=== PATIENT | female | born 1965 | race American Indian/Alaskan Native ===

== ENCOUNTER 2019-05-11 17:53 | Emergency (ER) | payer SELFPAY ==
--- NOTE | 2019-05-11 18:20 | Event Note ---
ED Screening Note Date of service: 05/11/19 Time: 18:15 ED Screening Note: This is a 53 y.o. F. that presents to the ER with SOB, wheezing, and right eye pain. PMH COPD, HTN, schizophrenia, bipolar, AL, and sickle cell trait. Reports right eye drainage, redness, photophobia, and pain x 2 days. This initial assessment/diagnostic orders/clinical plan/treatment(s) is/are subject to change based on patients health status, clinical progression and re- assessment by fellow clinical providers in the ED. Further treatment and workup at subsequent clinical providers discretion. Patient/guardian urged not to elope from the ED as their condition may be serious if not clinically assessed and man aged. Initial orders include: CXR and labs
[2019-05-11 18:51] LABS: Basophils # (Auto) 0.1 K/mm3 (0.0-0.1); Eosinophils # (Auto) 0.2 K/mm3 (0.0-0.4); Eosinophils % (Auto) 3.6 % (0.0-4.3); Hematocrit 39.7 % (30.3-42.9); Hemoglobin 13.2 gm/dl (10.1-14.3); Lymphocytes # (Auto) 2.1 K/mm3 (1.2-5.4); Mean Corpuscular HGB Conc 33 % (30-34); Mean Corpuscular Volume 94 fl (79-97); Monocytes # (Auto) 0.7 K/mm3 (0.0-0.8); Monocytes % (Auto) 10.2 % (0.0-7.3); Platelet Count 724 K/mm3 (140-440); Red Blood Count 4.23 M/mm3 (3.65-5.03); Red Cell Distribution Width 14.8 % (13.2-15.2)
--- NOTE | 2019-05-11 18:54 | XRay Report ---
CHEST 2 VIEWS INDICATION / CLINICAL INFORMATION: Shortness of breath. COMPARISON: None available. FINDINGS: SUPPORT DEVICES: None. HEART / MEDIASTINUM: No significant abnormality. LUNGS / PLEURA: No significant pulmonary or pleural abnormality. No pneumothorax. ADDITIONAL FINDINGS: No significant additional findings. IMPRESSION: 1. No acute findings. Signer Name: Willy Patel MD Signed: 05/11/2019 6:49 PM Workstation Name: [id number]
[2019-05-11 19:12] LABS: BUN/Creatinine Ratio 13; Blood Urea Nitrogen 14 mg/dL (7-17); Calcium 9.4 mg/dL (8.4-10.2); Hemolysis Index 23
[2019-05-11] MEDS ORDERED: ATROVENT IH ONE (20:49)
[2019-05-11] MEDS ORDERED: DELTASONE PO ONE (20:49)
[2019-05-11] MEDS ORDERED: PROVENTIL IH ONE (20:49)
--- NOTE | 2019-05-11 20:55 | Emergency Department Report ---
HPI - General Chief Complaint: Dyspnea/Respdistress Time Seen by Provider: 05/11/19 18:15 - HPI HPI: Room 19 The patient is a 53-year-old female comes in with chief complaint of shortness of breath and right eye irritation. The patient states for one week she's had shortness of breath is consistent with her COPD. Patient was an occasional cough that is nonproductive. Patient denies history of fever. The patient states for the past 3 days she's had tearing from the right eye in addition to pruritus and irritation. Location: [See above] Duration: [See above] Quality: [See above] Severity: [See above] Modifying factors: [see above] Context: [see above] Mode of transportation: [not driving] ED Past Medical Hx - Past Medical History Hx Hypertension: Yes Hx Sickle Cell Disease: Yes (trait) Hx Psychiatric Treatment: Yes (schizophrenia,bipolar) Hx COPD: Yes - Surgical History Additional Surgical History: left lung-2004, hernia,c-sections - Family History Family history: no significant - Social History Smoking Status: Current Every Day Smoker (1/3 pack per day) Substance Use Type: None (denies illicit drug use), Alcohol (occasional) - Medications Home Medications: Home Medications Medication Instructions Recorded Confirmed Last Taken Type ALBUTEROL Inhaler (OR & NICU) 2 puff IH QID PRN #1 inha 05/11/19 Unknown Rx [ProAir HFA Inhaler] Budesonide/Formoterol Fumarate 10.2 gm IH 05/11/19 Unknown History [Symbicort 80-4.5 Mcg Inhaler] Polymyxin B Sulf/Trimethoprim 1 drop OD QID #10 ml 05/11/19 Unknown Rx [Polytrim Eye Drops] Prednisone [predniSONE 10 mg 10 mg PO .TAPER #1 tab.ds.pk 05/11/19 Unknown Rx (6-Day Pack, 21 Tabs)] QUEtiapine [SEROquel] 200 mg PO BID #30 tablet 05/11/19 Unknown Rx amLODIPine [Norvasc] 10 mg PO DAILY #90 tablet 05/11/19 Unknown Rx traZODone [Desyrel] 50 mg PO QHS #30 tablet 05/11/19 Unknown Rx ED Review of Systems ROS: Stated complaint: COPD/R EYE PAIN Other details as noted in HPI Constitutional: denies: fever Eyes: eye pain, eye discharge ENT: denies: throat pain Respiratory: cough, shortness of breath, wheezing Cardiovascular: denies: chest pain Endocrine: no symptoms reported Gastrointestinal: denies: abdominal pain Genitourinary: denies: dysuria Musculoskeletal: denies: back pain Neurological: denies: headache Physical Exam - Physical Exam Vital Signs: Vital Signs 05/11/19 05/11/19 05/11/19 18: 20:45 20:46 Temperature 98.2 F Pulse Rate 80 77 Respiratory 18 Rate Blood Pressure 196/110 Blood Pressure 190/116 [Right] O2 Sat by Pulse 98 98 Oximetry Physical Exam: GENERAL: The patient is well-developed well-nourished female lying on stretcher not appearing to be in acute distress. [] HEENT: Normocephalic. Atraumatic. Extraocular motions are intact. OD conjunctiva injected consistent with conjunctivitis. No hypopyon NECK: Supple. Trachea midline CHEST/LUNGS: Diminished breath sounds, tight wheezing. There is no respiratory distress noted. HEART/CARDIOVASCULAR: Regular. There is no tachycardia. There is no gallop rub or murmur. ABDOMEN: Abdomen is soft, nontender. Patient has normal bowel sounds. There is no abdominal distention. SKIN: There is no rash. There is no edema. There is no diaphoresis. NEURO: The patient is awake, alert, and oriented. The patient is cooperative. The patient has normal speech MUSCULOSKELETAL: There is no evidence of acute injury. ED Course Vital Signs 05/11/19 05/11/19 05/11/19 18: 20:45 20:46 Temperature 98.2 F Pulse Rate 80 77 Respiratory 18 Rate Blood Pressure 196/110 Blood Pressure 190/116 [Right] O2 Sat by Pulse 98 98 Oximetry - Reevaluation(s) Reevaluation #1: 05/11/19 23:23 Patient improved. Lungs clear auscultation ED Medical Decision Making - Lab Data Result diagrams: 05/11/19 18:33 05/11/19 18:33 Laboratory Tests 05/11/19 05/11/19 18:33 18:33 WBC 6.4 RBC 4.23 Hgb 13.2 Hct 39.7 MCV 94 MCH 31 MCHC 33 RDW 14.8 Plt Count 724 H Lymph % (Auto) 33.0 Baker % (Auto) 10.2 H Eos % (Auto) 3.6 Baso % (Auto) 1.0 Lymph # 2.1 Baker # 0.7 Eos # 0.2 Baso # 0.1 Seg Neutrophils % 52.2 Seg Neutrophils # 3.3 Sodium 141 Potassium 4.6 Chloride 104.6 Carbon Dioxide 27 Anion Gap 14 BUN 14 Creatinine 1.1 Estimated GFR > 60 BUN/Creatinine Ratio 13 Glucose 100 Calcium 9.4 - Radiology Data Radiology results: report reviewed (chest x-ray), image reviewed (chest x-ray) interpreted by me: Chest x-ray-no focal infiltrates, no pneumothorax [facility] [address] [place] [address] XRay Report Signed Patient: AMANDA HENRY MR#: [id number] : 1965 Acct:[id number] Age/Sex: 53 / F ADM Date: 05/11/19 Loc: ED Attending Dr: Ordering Physician: ETHAN RENEE Date of Service: 05/11/19 Procedure(s): XR chest routine 2V Accession Number(s): [id number] cc: ETHAN RENEE Fluoro Time In Minutes: CHEST 2 VIEWS INDICATION / CLINICAL INFORMATION: Shortness of breath. COMPARISON: None available. FINDINGS: SUPPORT DEVICES: None. HEART / MEDIASTINUM: No significant abnormality. LUNGS / PLEURA: No significant pulmonary or pleural abnormality. No pneumothorax. ADDITIONAL FINDINGS: No significant additional findings. IMPRESSION: 1. No acute findings. Signer Name: Willy Patel MD Signed: 05/11/2019 6:49 PM Workstation Name: [id number] Transcribed By: ALFONSOB Dictated By: Willy Patel MD El [employer] Authenticated By: Willy Patel MD Signed Date/Time: 05/11/191848 DD/ 48 TD/TT: - Differential Diagnosis COPD exacerbation, conjunctivitis, pneumonia, bronchitis Critical care attestation.: If time is entered above; I have spent that time in minutes in the direct care of this critically ill patient, excluding procedure time. ED Disposition Clinical Impression: COPD exacerbation, Shortness of breath, Conjunctivitis, right eye Disposition: DC-01 TO HOME OR SELFCARE Is pt being admited?: No Does the pt Need Aspirin: No Condition: Stable Instructions: Chronic Obstructive Pulmonary Disease (ED) Additional Instructions: Return to the emergency department immediately should you develop worsening sym ptoms, fever, inability to tolerate food or liquid or any other concerns. Prescriptions: traZODone [Desyrel] 50 mg PO QHS #30 tablet amLODIPine [Norvasc] 10 mg PO DAILY #90 tablet Polymyxin B Sulf/Trimethoprim [Polytrim Eye Drops] 1 drop OD QID #10 ml Prednisone [predniSONE 10 mg (6-Day Pack, 21 Tabs)] 10 mg PO .TAPER #1 tab.ds.pk ALBUTEROL Inhaler (OR & NICU) [ProAir HFA Inhaler] 2 puff IH QID PRN #1 inha PRN Reason: Shortness Of Breath QUEtiapine [SEROquel] 200 mg PO BID #30 tablet Referrals: CHARLI MARES MD [Primary Care Provider] - 3-5 Days Time of Disposition: 23:26
[2019-05-11] MEDS ORDERED: CATAPRES PO ONE (20:57)
[2019-05-11 23:20] VITALS: BP 134/67
== END 2019-05-11 23:43 | disposition home or self-care (01) ==
LOC: ED 17:53
DX: J44.1 Chronic obstructive pulmonary disease with (acute) exacerbation (principal); R06.02 Shortness of breath; H10.9 Unspecified conjunctivitis; I10 Essential (primary) hypertension; F20.9 Schizophrenia, unspecified; F31.9 Bipolar disorder, unspecified; F17.210 Nicotine dependence, cigarettes, uncomplicated; D57.3 Sickle-cell trait; Z79.899 Other long term (current) drug therapy
CPT/HCPCS: 36415; 71046; 80048; 85025; 94644; 99284; J7512; 94640

== ENCOUNTER 2020-09-10 11:46 | Outpatient (CLI) | payer OTHER ==
--- NOTE | 2020-09-10 12:47 | XRay Report ---
RIGHT ELBOW 2 VIEWS INDICATION / CLINICAL INFORMATION: RIGHT ELBOW PAIN. COMPARISON: None available. FINDINGS: No significant skeletal abnormality Signer Name: Kushal Pugh MD FACR Signed: 09/10/2020 12:43 PM Workstation Name: [id number]
--- NOTE | 2020-09-10 12:48 | XRay Report ---
LUMBAR SPINE 3 VIEWS INDICATION / CLINICAL INFORMATION: BACK PAIN. COMPARISON: None available. FINDINGS: Mild anterolisthesis of L4 on L5. Moderate degenerative change at L5-S1. No other significant skeleta l abnormality Signer Name: Kushal Pugh MD FACR Signed: 09/10/2020 12:44 PM Workstation Name: [id number]
--- NOTE | 2020-09-10 14:10 | XRay Report ---
RIGHT SHOULDER 3 VIEW(S) INDICATION / CLINICAL INFORMATION: RIGHT SHOULDER PAIN COMPARISON: None available. FINDINGS: BONES / JOINT(S): No acute fracture or subluxation. No significant arthritis. SOFT TISSUES: No significant abnormality. ADDITIONAL FINDINGS: None. Signer Name: Olegario Webber MD Signed: 09/10/2020 2:05 PM Workstation Name: [id number]
== END 2020-09-10 11:47 | disposition home or self-care (01) ==
LOC: XRAY 11:46
PROVIDERS: ATTEND Internal Medicine
DX: M43.16 Spondylolisthesis, lumbar region (principal); M47.817 Spondylosis without myelopathy or radiculopathy, lumbosacral region; M25.511 Pain in right shoulder; M25.521 Pain in right elbow; I10 Essential (primary) hypertension; J44.9 Chronic obstructive pulmonary disease, unspecified
CPT/HCPCS: 72100

== ENCOUNTER 2021-12-13 18:31 | Emergency (ER) | payer MEDICAID, OTHER ==
[2021-12-13 19:03] VITALS: BP 220/146
[2021-12-13] MEDS ORDERED: KETOROLAC 10 MG TAB PO ONE (19:40)
[2021-12-13] MEDS ORDERED: DEXAMETHASONE 4 MG TAB PO ONE (19:40)
[2021-12-13] MEDS ORDERED: oxyCODONE /ACETAMINOPHEN 5-325MG TAB PO ONE (19:40)
[2021-12-13] MEDS ORDERED: cloNIDine 0.1 MG TAB PO ONE (19:41)
[2021-12-13] MEDS ORDERED: AMOXICILLIN 500 MG CAP PO ONE (19:41)
--- NOTE | 2021-12-13 19:48 | Emergency Department Report ---
ED ENT HPI - General Chief complaint: Dental/Oral Stated complaint: EYE SWOLLEN Time Seen by Provider: 12/13/21 18:55 Source: patient Mode of arrival: Ambulatory Limitations: No Limitations - History of Present Illness Initial comments: 56-year-old black female with a past medical history of hypertension, diabetes, COPD, schizophrenia, and bipolar disorder presents to the emergency department with few day history of worsening right upper tooth pain and facial swelling. She denies fever but states that she this is a case pus drainage in her mouth th at started today. She is also requesting refill of medications stating that she has not taken her blood pressure medications in a couple of days. She denies chest pain, shortness of breath, nausea, vomiting, and dizziness. MD complaint: tooth pain -: Gradual, days(s) (To) Location: R ear, tooth # (2) Severity: severe Severity scale (0 -10): 10 Quality: aching, constant Consistency: constant Worsens with: eating, other Context- Dental: history of dental caries Associated Symptoms: gum swelling, toothache. denies: fever, cough, pain with swallowing, sore throat, tinnitus, hearing loss, discharge from ear, rhinorrhea - Related Data Previous Rx's Medication Instructions Recorded Last Taken Type Albuterol Mdi (or & Nicu Only) 2 puff IH QID PRN #1 inha 05/11/19 Unknown Rx [ProAir HFA Inhaler] Polymyxin B Sulf/Trimethoprim 1 drop OD QID #10 ml 05/11/19 Unknown Rx [Polytrim Eye Drops] Prednisone [predniSONE 10 mg 10 mg PO .TAPER #1 tab.ds.pk 05/11/19 Unknown Rx (6-Day Pack, 21 Tabs)] Acetaminophen/Codeine [Tylenol 1 tab PO Q6H PRN #12 tab 12/13/21 Unknown Rx /Codeine # 3 tab] Albuterol Sulfate [Albuterol 0.63% 0.63 mg IH TID PRN #10 vial 12/13/21 Unknown Rx NEBS] Amoxicillin [Amoxicillin TAB] 875 mg PO BID #14 tab 12/13/21 Unknown Rx Budesonide/Formoterol Fumarate 10.2 gm IH QAM #1 inhalation 12/13/21 Unknown Rx [Symbicort 80-4.5 Mcg Inhaler] Ketorolac [Toradol] 10 mg PO Q6H PRN #14 tab 12/13/21 Unknown Rx QUEtiapine [SEROquel] 200 mg PO BID #30 tablet 12/13/21 Unknown Rx amLODIPine 10 mg PO DAILY #90 tablet 12/13/21 Unknown Rx traZODone [Desyrel] 50 mg PO QHS #30 tablet 12/13/21 Unknown Rx Allergies Allergy/AdvReac Type Severity Reaction Status Date / Time No Known Allergies Allergy Verified 12/13/21 18:59 ED Dental HPI - General Chief complaint: Dental/Oral Stated complaint: EYE SWOLLEN Time Seen by Provider: 12/13/21 18:55 Source: patient Mode of arrival: Ambulatory Limitations: No Limitations - Related Data Previous Rx's Medication Instructions Recorded Last Taken Type Albuterol Mdi (or & Nicu Only) 2 puff IH QID PRN #1 inha 05/11/19 Unknown Rx [ProAir HFA Inhaler] Polymyxin B Sulf/Trimethoprim 1 drop OD QID #10 ml 05/11/19 Unknown Rx [Polytrim Eye Drops] Prednisone [predniSONE 10 mg 10 mg PO .TAPER #1 tab.ds.pk 05/11/19 Unknown Rx (6-Day Pack, 21 Tabs)] Acetaminophen/Codeine [Tylenol 1 tab PO Q6H PRN #12 tab 12/13/21 Unknown Rx /Codeine # 3 tab] Albuterol Sulfate [Albuterol 0.63% 0.63 mg IH TID PRN #10 vial 12/13/21 Unknown Rx NEBS] Amoxicillin [Amoxicillin TAB] 875 mg PO BID #14 tab 12/13/21 Unknown Rx Budesonide/Formoterol Fumarate 10.2 gm IH QAM #1 inhalation 12/13/21 Unknown Rx [Symbicort 80-4.5 Mcg Inhaler] Ketorolac [Toradol] 10 mg PO Q6H PRN #14 tab 12/13/21 Unknown Rx QUEtiapine [SEROquel] 200 mg PO BID #30 tablet 12/13/21 Unknown Rx amLODIPine 10 mg PO DAILY #90 tablet 12/13/21 Unknown Rx traZODone [Desyrel] 50 mg PO QHS #30 tablet 12/13/21 Unknown Rx Allergies Allergy/AdvReac Type Severity Reaction Status Date / Time No Known Allergies Allergy Verified 12/13/21 18:59 ED Review of Systems ROS: Stated complaint: EYE SWOLLEN Other details as noted in HPI Comment: All other systems reviewed and negative Constitutional: denies: chills, fever, weakness Eyes: denies: eye pain, eye discharge, vision change ENT: ear pain, dental pain. denies: throat pain, hearing loss, epistaxis, congestion Respiratory: denies: cough, shortness of breath Cardiovascular: denies: chest pain, palpitations Endocrine: no symptoms reported Gastrointestinal: denies: abdominal pain, nausea, vomiting, diarrhea Genitourinary: denies: urgency, dysuria, frequency, hematuria Musculoskeletal: denies: back pain Skin: denies: rash, lesions Neurological: denies: headache, weakness, numbness, paresthesias Psychiatric: denies: anxiety, depression Hematological/Lymphatic: denies: easy bleeding, easy bruising ED Past Medical Hx - Past Medical History Hx Hypertension: Yes Hx Sickle Cell Disease: Yes (trait) Hx Psychiatric Treatment: Yes (schizophrenia,bipolar) Hx COPD: Yes - Surgical History Additional Surgical History: left lung-2004, hernia,c-sections - Social History Smoking Status: Never Smoker Substance Use Type: None - Medications Home Medications: Home Medications Medication Instructions Recorded Confirmed Last Taken Type Albuterol Mdi (or & Nicu Only) 2 puff IH QID PRN #1 inha 05/11/19 12/13/21 Unknown Rx [ProAir HFA Inhaler] Polymyxin B Sulf/Trimethoprim 1 drop OD QID #10 ml 05/11/19 12/13/21 Unknown Rx [Polytrim Eye Drops] Prednisone [predniSONE 10 mg 10 mg PO .TAPER #1 tab.ds.pk 05/11/19 12/13/21 Unknown Rx (6-Day Pack, 21 Tabs)] Acetaminophen/Codeine [Tylenol 1 tab PO Q6H PRN #12 tab 12/13/21 Unknown Rx /Codeine # 3 tab] Albuterol Sulfate [Albuterol 0.63% 0.63 mg IH TID PRN #10 vial 12/13/21 Unknown Rx NEBS] Amoxicillin [Amoxicillin TAB] 875 mg PO BID #14 tab 12/13/21 Unknown Rx Budesonide/Formoterol Fumarate 10.2 gm IH QAM #1 inhalation 12/13/21 Unknown Rx [Symbicort 80-4.5 Mcg Inhaler] Ketorolac [Toradol] 10 mg PO Q6H PRN #14 tab 12/13/21 Unknown Rx QUEtiapine [SEROquel] 200 mg PO BID #30 tablet 12/13/21 Unknown Rx amLODIPine 10 mg PO DAILY #90 tablet 12/13/21 Unknown Rx traZODone [Desyrel] 50 mg PO QHS #30 tablet 12/13/21 Unknown Rx ED Physical Exam - General Limitations: No Limitations General appearance: alert, in no apparent distress - Head Head exam: Present: atraumatic, normocephalic - Eye Eye exam: Present: normal appearance. Absent: conjunctival injection - Expanded ENT Exam Expanded Teeth exam: Present: dental caries, dental tenderness # (2), other (Noted to have edema and erythema with abscess to the gum above tooth #2. Minimal purulent drainage noted.) Throat exam: Positive: normal inspection - Neck Neck exam: Present: normal inspection, lymphadenopathy (Right anterior cervical). Absent: tenderness - Respiratory Respiratory exam: Present: normal lung sounds bilaterally. Absent: respiratory distress, wheezes, rales, rhonchi, chest wall tenderness, accessory muscle use - Cardiovascular Cardiovascular Exam: Present: regular rate, normal heart sounds - GI/Abdominal GI/Abdominal exam: Present: soft. Absent: distended, tenderness, guarding, rebound, rigid, normal bowel sounds - Extremities Exam Extremities exam: Present: normal inspection - Back Exam Back exam: Present: normal inspection, full ROM. Absent: tenderness, CVA tenderness (R), CVA tenderness (L) - Neurological Exam Neurological exam: Present: alert, oriented X3 - Psychiatric Psychiatric exam: Present: normal affect, normal mood - Skin Skin exam: Present: warm, dry, intact, normal color ED Course Vital Signs 12/13/21 12/13/21 12/13/21 18:40 18:57 19:02 Temperature 97.8 F 97.6 F Pulse Rate 86 79 Respiratory 18 18 Rate Blood Pressure 220/146 Blood Pressure 222/146 [Right] O2 Sat by Pulse 99 98 99 Oximetry ED Medical Decision Making - Medical Decision Making 56-year-old black female with a past medical history of hypertension, diabetes, COPD, schizophrenia, and bipolar disorder presents to the emergency department with few day history of worsening right upper tooth pain and facial swelling. She denies fever but states that she this is a case pus drainage in her mouth that started today. She is also requesting refill of medications stating that she has not taken her blood pressure medications in a couple of days. She denies chest pain, shortness of breath, nausea, vomiting, and dizziness. Patient noted to have abscessed tooth to right upper gum area around tooth #2. She will be treated with 7-day course of amoxicillin along with Toradol and Tylenol 3 for pain. She denies any chest pain, shortness of breath, dizziness, headache, or diaphoresis. She is noted to be hypertensive but has not taken her antihypertensive medication because she has ran out. She will be given a one- time dose of clonidine 0.1 mg and then get refill of the amlodipine to continue at home. Plan of care was reviewed with patient, and she verbalized understanding of and agreement with. Patient in no acute distress. Critical care attestation.: If time is entered above; I have spent that time in minutes in the direct care of this critically ill patient, excluding procedure time. ED Disposition Clinical Impression: Dental abscess, Medication refill Disposition: 01 HOME / SELF CARE / HOMELESS Is pt being admited?: No Does the pt Need Aspirin: No Condition: Stable Instructions: Dental Abscess, [id number] Additional Instructions: Take medications as prescribed. Follow-up with dentist. Return to the emergency department for worsening symptoms. Prescriptions: traZODone [Desyrel] 50 mg PO QHS #30 tablet Albuterol Sulfate [Albuterol 0.63% NEBS] 0.63 mg IH TID PRN #10 vial PRN Reason: Wheezing amLODIPine 10 mg PO DAILY #90 tablet Amoxicillin [Amoxicillin TAB] 875 mg PO BID #14 tab QUEtiapine [SEROquel] 200 mg PO BID #30 tablet Budesonide/Formoterol Fumarate [Symbicort 80-4.5 Mcg Inhaler] 10.2 gm IH QAM #1 inhalation Ketorolac [Toradol] 10 mg PO Q6H PRN #14 tab PRN Reason: Pain Acetaminophen/Codeine [Tylenol /Codeine # 3 tab] 1 tab PO Q6H PRN #12 tab PRN Reason: Pain , Severe (7-10) Referrals: BERNABE WITT MD [Referring] - 3-5 Days [facility] [Outside] - 3-5 Days Time of Disposition: 19:49
== END 2021-12-13 18:55 | disposition home or self-care (01) ==
LOC: ED 18:31
DX: K04.7 Periapical abscess without sinus (principal); I10 Essential (primary) hypertension; Z76.0 Encounter for issue of repeat prescription
CPT/HCPCS: 99282; J8540

== ENCOUNTER 2022-02-12 15:53 | Emergency (ER) | payer MEDICAID ==
[2022-02-12 16:00] VITALS: BP 165/101
--- NOTE | 2022-02-12 17:52 | Emergency Department Report ---
ED ENT HPI - General Chief complaint: Headache Stated complaint: ACHE/EAR/TOOTH Time Seen by Provider: 02/12/22 17:25 Source: patient Mode of arrival: Ambulatory Limitations: No Limitations - History of Present Illness Initial comments: 56-year-old female has a history of diabetes hypertension resents emerged from complaining of a 3 to 4-day history of right upper dental pain which is began to migrate to her right ear as well pain is worse with chewing eating and drinking. Also has been having some nasal congestion associate with associated with a cough when she is laying flat. No shortness of breath, no hemoptysis hematemesis medic easy, no fever, chills, sweats. No chest pain no cough patient, no diarrhea, no rashes no foreign travel no known contact with the coronavirus MD complaint: tooth pain, ear pain -: Gradual Location: tooth # 1 - Dental pain Severity: mild, moderate Improves with: none Worsens with: none Associated Symptoms: cough, toothache, pain with swallowing, sore throat, rhinorrhea. denies: tinnitus, hearing loss - Related Data Previous Rx's Medication Instructions Recorded Last Taken Type Albuterol Mdi (or & Nicu Only) 2 puff IH QID PRN #1 inha 05/11/19 Unknown Rx [ProAir HFA Inhaler] Polymyxin B Sulf/Trimethoprim 1 drop OD QID #10 ml 05/11/19 Unknown Rx [Polytrim Eye Drops] Prednisone [predniSONE 10 mg 10 mg PO .TAPER #1 tab.ds.pk 05/11/19 Unknown Rx (6-Day Pack, 21 Tabs)] Acetaminophen/Codeine [Tylenol 1 tab PO Q6H PRN #12 tab 12/13/21 Unknown Rx /Codeine # 3 tab] Albuterol Sulfate [Albuterol 0.63% 0.63 mg IH TID PRN #10 vial 12/13/21 Unknown Rx NEBS] Amoxicillin [Amoxicillin TAB] 875 mg PO BID #14 tab 12/13/21 Unknown Rx Budesonide/Formoterol Fumarate 10.2 gm IH QAM #1 inhalation 12/13/21 Unknown Rx [Symbicort 80-4.5 Mcg Inhaler] Ketorolac [Toradol] 10 mg PO Q6H PRN #14 tab 12/13/21 Unknown Rx QUEtiapine [SEROquel] 200 mg PO BID #30 tablet 12/13/21 Unknown Rx amLODIPine 10 mg PO DAILY #90 tablet 12/13/21 Unknown Rx traZODone [Desyrel] 50 mg PO QHS #30 tablet 12/13/21 Unknown Rx Amoxicillin [Amoxicillin TAB] 875 mg PO BID #20 tablet 02/12/22 Unknown Rx Chlorhexidine Mouthwash [Peridex] 15 ml MM BID #1 bottle 02/12/22 Unknown Rx Lidocaine Viscous 2% 5 ml MM Q3H PRN #120 udc 02/12/22 Unknown Rx Allergies Allergy/AdvReac Type Severity Reaction Status Date / Time No Known Allergies Allergy Verified 12/13/21 18:59 ED Dental HPI - General Chief complaint: Headache Stated complaint: ACHE/EAR/TOOTH Time Seen by Provider: 02/12/22 17:25 Source: patient Mode of arrival: Ambulatory Limitations: No Limitations - Related Data Previous Rx's Medication Instructions Recorded Last Taken Type Albuterol Mdi (or & Nicu Only) 2 puff IH QID PRN #1 inha 05/11/19 Unknown Rx [ProAir HFA Inhaler] Polymyxin B Sulf/Trimethoprim 1 drop OD QID #10 ml 05/11/19 Unknown Rx [Polytrim Eye Drops] Prednisone [predniSONE 10 mg 10 mg PO .TAPER #1 tab.ds.pk 05/11/19 Unknown Rx (6-Day Pack, 21 Tabs)] Acetaminophen/Codeine [Tylenol 1 tab PO Q6H PRN #12 tab 12/13/21 Unknown Rx /Codeine # 3 tab] Albuterol Sulfate [Albuterol 0.63% 0.63 mg IH TID PRN #10 vial 12/13/21 Unknown Rx NEBS] Amoxicillin [Amoxicillin TAB] 875 mg PO BID #14 tab 12/13/21 Unknown Rx Budesonide/Formoterol Fumarate 10.2 gm IH QAM #1 inhalation 12/13/21 Unknown Rx [Symbicort 80-4.5 Mcg Inhaler] Ketorolac [Toradol] 10 mg PO Q6H PRN #14 tab 03/08/22 Unknown Rx QUEtiapine [SEROquel] 200 mg PO BID #30 tablet 12/13/21 Unknown Rx amLODIPine 10 mg PO DAILY #90 tablet 12/13/21 Unknown Rx traZODone [Desyrel] 50 mg PO QHS #30 tablet 12/13/21 Unknown Rx Amoxicillin [Amoxicillin TAB] 875 mg PO BID #20 tablet 02/12/22 Unknown Rx Chlorhexidine Mouthwash [Peridex] 15 ml MM BID #1 bottle 02/12/22 Unknown Rx Lidocaine Viscous 2% 5 ml MM Q3H PRN #120 udc 02/12/22 Unknown Rx Allergies Allergy/AdvReac Type Severity Reaction Status Date / Time No Known Allergies Allergy Verified 12/13/21 18:59 ED Review of Systems ROS: Stated complaint: ACHE/EAR/TOOTH Other details as noted in HPI Comment: All other systems reviewed and negative ED Past Medical Hx - Past Medical History Previous Medical History?: Yes Hx Hypertension: Yes Hx Sickle Cell Disease: Yes (trait) Hx Psychiatric Treatment: Yes (schizophrenia,bipolar) Hx COPD: Yes - Surgical History Past Surgical History?: Yes Additional Surgical History: left lung-2004, hernia,c-sections - Social History Smoking Status: Never Smoker Substance Use Type: None - Medications Home Medications: Home Medications Medication Instructions Recorded Confirmed Last Taken Type Albuterol Mdi (or & Nicu Only) 2 puff IH QID PRN #1 inha 05/11/19 12/13/21 Unknown Rx [ProAir HFA Inhaler] Polymyxin B Sulf/Trimethoprim 1 drop OD QID #10 ml 05/11/19 12/13/21 Unknown Rx [Polytrim Eye Drops] Prednisone [predniSONE 10 mg 10 mg PO .TAPER #1 tab.ds.pk 05/11/19 12/13/21 Unknown Rx (6-Day Pack, 21 Tabs)] Acetaminophen/Codeine [Tylenol 1 tab PO Q6H PRN #12 tab 12/13/21 Unknown Rx /Codeine # 3 tab] Albuterol Sulfate [Albuterol 0.63% 0.63 mg IH TID PRN #10 vial 12/13/21 Unknown Rx NEBS] Amoxicillin [Amoxicillin TAB] 875 mg PO BID #14 tab 12/13/21 Unknown Rx Budesonide/Formoterol Fumarate 10.2 gm IH QAM #1 inhalation 12/13/21 Unknown Rx [Symbicort 80-4.5 Mcg Inhaler] Ketorolac [Toradol] 10 mg PO Q6H PRN #14 tab 12/13/21 Unknown Rx QUEtiapine [SEROquel] 200 mg PO BID #30 tablet 12/13/21 Unknown Rx amLODIPine 10 mg PO DAILY #90 tablet 12/13/21 Unknown Rx traZODone [Desyrel] 50 mg PO QHS #30 tablet 12/13/21 Unknown Rx Amoxicillin [Amoxicillin TAB] 875 mg PO BID #20 tablet 02/12/22 Unknown Rx Chlorhexidine Mouthwash [Peridex] 15 ml MM BID #1 bottle 02/12/22 Unknown Rx Lidocaine Viscous 2% 5 ml MM Q3H PRN #120 udc 02/12/22 Unknown Rx ED Physical Exam - General Limitations: No Limitations General appearance: alert, in no apparent distress - Head Head exam: Present: atraumatic, normocephalic - Eye Eye exam: Present: normal appearance, PERRL, EOMI Pupils: Present: normal accommodation - ENT ENT exam: Present: normal exam, normal orophraynx, mucous membranes moist, TM's normal bilaterally - Expanded ENT Exam Expanded Ear exam: Present: normal external inspection. Absent: auricular hematoma, auricular trauma Teeth exam: Present: dental caries, dental tenderness # 1 - Dental Tenderness (Severe dental erosion with several dental caries and adjacent gingival erythema. There is some swelling and puffiness. Airway is patent tongue uvula midline no drooling.) Throat exam: Positive: normal inspection - Neck Neck exam: Present: normal inspection - Respiratory Respiratory exam: Present: normal lung sounds bilaterally. Absent: respiratory distress, rales, rhonchi, chest wall tenderness, accessory muscle use, decreased breath sounds, prolonged expiratory - Cardiovascular Cardiovascular Exam: Present: regular rate, normal rhythm. Absent: systolic murmur, diastolic murmur, rubs, gallop - GI/Abdominal GI/Abdominal exam: Present: soft, normal bowel sounds - Extremities Exam Extremities exam: Present: normal inspection, normal capillary refill - Back Exam Back exam: Present: normal inspection. Absent: CVA tenderness (R), CVA tenderness (L) - Neurological Exam Neurological exam: Present: alert, oriented X3, CN II-XII intact, normal gait. Absent: motor sensory deficit, reflexes normal - Psychiatric Psychiatric exam: Present: normal affect, normal mood. Absent: suicidal ideat ion - Skin Skin exam: Present: warm, dry, intact, normal color. Absent: rash, cyanosis, diaphoretic ED Course Vital Signs 02/12/22 15:59 Temperature 97.3 F L Pulse Rate 99 H Respiratory 20 Rate Blood Pressure 165/101 O2 Sat by Pulse 98 Oximetry Critical care attestation.: If time is entered above; I have spent that time in minutes in the direct care of this critically ill patient, excluding procedure time. ED Disposition Clinical Impression: Infected dental caries, Nasal congestion Disposition: 01 HOME / SELF CARE / HOMELESS Is pt being admited?: No Does the pt Need Aspirin: No Condition: Stable Instructions: Postnasal Drip, Nonallergic Rhinitis, Diet and Dental Disease, Dental Abscess Referrals: [facility] [Outside] - 3-5 Days
== END 2022-02-12 18:35 | disposition home or self-care (01) ==
LOC: ED 15:53
DX: K08.89 Other specified disorders of teeth and supporting structures (principal); R09.81 Nasal congestion; I10 Essential (primary) hypertension; D57.1 Sickle-cell disease without crisis; F31.9 Bipolar disorder, unspecified; J44.9 Chronic obstructive pulmonary disease, unspecified; Z79.899 Other long term (current) drug therapy
CPT/HCPCS: 99282

== ENCOUNTER 2022-02-26 19:01 | Emergency (ER) | payer MEDICAID ==
--- NOTE | 2022-02-26 21:46 | XRay Report ---
RIGHT ANKLE, 3 VIEWS INDICATION / CLINICAL INFORMATION: INJURY. Pain COMPARISON: None available. FINDINGS: No fracture or dislocation. No significant soft tissue swelling. IMPRESSION: No fracture or dislocation involving the ankle. RIGHT FOOT, 3 VIEWS INDICATION / CLINICAL INFORMATION: INJURY. COMPARISON: None available. FINDINGS: Prominent hallux valgus deformity. No fracture or dislocation. IMPRESSION: Negative exam. Signer Name: Shawanda Morin MD Signed: 02/26/2022 9:41 PM Workstation Name: [id number]
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
[2022-02-27 02:43] VITALS: BP 170/112
== END 2022-02-27 02:43 | disposition home or self-care (01) ==
LOC: ED 19:01
DX: S96.911A Strain of unspecified muscle and tendon at ankle and foot level, right foot, initial encounter (principal); I10 Essential (primary) hypertension; J44.1 Chronic obstructive pulmonary disease with (acute) exacerbation; D57.1 Sickle-cell disease without crisis; F31.9 Bipolar disorder, unspecified; Z79.899 Other long term (current) drug therapy; X58.XXXA Exposure to other specified factors, initial encounter; Y93.89 Activity, other specified; Y92.89 Other specified places as the place of occurrence of the external cause; Y99.8 Other external cause status
CPT/HCPCS: 99283